=== PATIENT | female | born 1970 | race Caucasian/White ===

== ENCOUNTER → 2020-08-31 | Outpatient (CLI) | payer OTHER ==
[~2020-08-31] MED LIST: AIMOVIG AU70 MG/1 ML SUBQ; BOTOX100 UNIT; FLEXERIL PO; HYDROCODONE-AP1 EAC6 PO; IBUPROFEN 800800 M1 PO; IMITREX100 MG PO; IMITREX20 MG NASAL; NASONEX17 GM NASAL; RIZATRIPTAN10 M1 PO; SKELAXIN 800 M800 MG PO; SUMATRIPTA6 MG/0.5 M SUBQ; ZONISAMIDE 100100 M1 PO; ZYRTEC10 M5 PO
--- NOTE | 2020-09-26 19:06 | SLEEP ---
[address] [address] SLEEP STUDY REPORT Name: ALLY MONTEIRO Room: [facility]#: [id number] Admission: 08/31/20 Attend Phys: Maynor Diaz DO Discharge: Date of : 74 Report #: [id number] THIS REPORT FOR: cc: FAM - No family physician/PCP FAM - No family physician/PCP ~ Cholo Pagan MD This study has been reviewed in its entirety by a board certified sleep specialist DATE OF SERVICE: 08/31/2020 SLEEP STUDY INDICATION FOR SLEEP STUDY: Insomnia as well as insomnia with daytime sleepiness. INTERPRETATION: The total duration of the study is 362 minutes. During this time duration, the patient was asleep for 242 minutes with an overall sleep efficiency of 67%. Sleep onset initially occurred around 21 minutes after lying down in bed. REM onset was 227 minutes after sleep onset. N1 sleep duration is 8%, N2 duration is 69%, N3 duration is 12%, REM duration is 11%. We did record some rare sleep related respiratory events. It includes 4 central apneas, 2 hypopneas and 9 respiratory effort related arousals. Overall, apnea-hypopnea index is 1.5. Body position data indicates the patient was observed in the supine position for 128 minutes. The rest of the time, the patient was in other positions. The patient's overall apnea-hypopnea index is normal at 1.5 with respiratory disturbance index normal at 3.7. Events are somewhat more common in the supine position. Mean heart rate is 18. Periodic limb movement index is normal at 1.0. Arousal index is mildly elevated to 15.4. O2 saturation is adequately maintained throughout the sleep study. IMPRESSION: This is an essentially unremarkable sleep study. Overall, apnea-hypopnea index is normal at 1.5. O2 saturation is also adequately maintained throughout the sleep study. RECOMMENDATIONS: Recommend clinical correlation for evaluation and treatment of this patient's sleep complaints. <ELECTRONICALLY SIGNED> By: Cholo Pagan MD 09/26/20 [id number] Pagan MD /nt
== END ==
LOC: M.SLEEPLAB 21:00
PROVIDERS: ATTEND Family Medicine
DX: G47.10 Hypersomnia, unspecified (principal); R06.83 Snoring; G47.00 Insomnia, unspecified